=== PATIENT | female | born 1985 | race Caucasian/White ===

== ENCOUNTER 2016-12-03 18:56 | Emergency (ER) | payer MEDICAID ==
[~2016-12-03] VITALS: Ht 160 cm; Wt 56.7 kg
[2016-12-03 19:24] VITALS: BP 108/71
--- NOTE | 2016-12-03 19:46 | NUR ---
TO ER BED 5
--- NOTE | 2016-12-03 19:56 | NUR ---
pt c/o abd pain, back pain and legs hurting her. pt states she has also has vag bleeding for 2 weeks. DENIES N/V/D; SKIN IS PINK/WARM/DRY; AAOX4 WITH EVEN AND STEADY GAIT; LUNGS CLEAR BL; HR EVEN AND REGULAR; PT DENIES ANY FEVER, CP, SOB, OR COUGH AT THIS TIME; PATIENT STATES PAIN OF 8/10 AT THIS TIME; VSS; PATIENT POSITIONED FOR COMFORT; HOB ELEVATED; BEDRAILS UP X2; BED DOWN. ER MD MADE AWARE OF PT STATUS.
[2016-12-03] MEDS ORDERED: KETOROLAC 60 MG/2 ML VIAL IM ONE (20:00)
[2016-12-03 20:17] VITALS: BP 105/70
== END 2016-12-03 20:17 | disposition home or self-care (01) ==
LOC: MED 18:56
DX: F17.200 Nicotine dependence, unspecified, uncomplicated (principal)
CPT/HCPCS: 81002; 81025; 96372; 99283; J1885

== ENCOUNTER 2018-08-29 10:01 | Emergency (ER) | payer MEDICAID ==
[~2018-08-29] VITALS: Ht 162.6 cm; Wt 52.2 kg
[2018-08-29 10:07] VITALS: BP 127/75
== END 2018-08-29 10:29 | disposition home or self-care (01) ==
LOC: MED 10:01
DX: N39.0 Urinary tract infection, site not specified (principal)
CPT/HCPCS: 81002; 81025; 99283

== ENCOUNTER 2019-01-15 21:51 | Emergency (ER) | payer MEDICAID ==
[~2019-01-15] VITALS: Ht 157.5 cm; Wt 53.5 kg
[2019-01-15 22:11] VITALS: BP 114/69
--- NOTE | 2019-01-15 22:15 | NUR ---
PT AMBULATED TO [facility]. PROVIDED URINE.
--- NOTE | 2019-01-15 22:38 | NUR ---
PT AMBULATED TO ER BED 5
--- NOTE | 2019-01-15 22:40 | NUR ---
PT CAME INTO ER WITH C/O OF ABDOMINAL PAIN X1 DAY. PT STATED THAT SHE HAS HAD SOME NAUSEA AND DIRRHEA BUT DENIES VOMITING. PT IS ALERT AND ORIENTED. TO PERSON, PLACE AND TIME. PT HAS PAIN THROUGHOUT ABDOMEN REGION, BOWEL SOUNDS ACTIVE IN ALL 4 Q. PT HAS PAIN TO PALPATION. PAIN LEVEL IS 8/10 AT THIS TIME. ER MD MADE AWARE OF STATUS, SAFETY MEASURES IN PLACE X 1. FAMILY AT BEDSIDE.
[2019-01-15] MEDS ORDERED: ONDANSETRON 4 MG/2 ML VIAL IVP ONE (23:20)
[2019-01-15] MEDS ORDERED: MORPHINE SULFATE 4 MG/ML SYR IVP ONE (23:20)
[2019-01-15 23:37] LABS: BASOPHILS # (AUTO) 0.1 K/uL (0.00-0.22); BASOPHILS % (AUTO) 0.4 % (0.0-2.0); EOSINOPHILS # (AUTO) 0.2 K/uL (0-0.4); EOSINOPHILS % (AUTO) 0.8 % (0.0-4.0); HEMOGLOBIN 13.1 g/dL (12.0-16.0); LYMPHOCYTES # (AUTO) 2.3 K/uL (2.5-16.5); LYMPHOCYTES % (AUTO) 12.9 % (20.5-51.1); MEAN CORPUSCULAR HEMOGLOBIN 30 pg (27-31); MEAN CORPUSCULAR HGB CONC 33 g/dL (33-37); MEAN CORPUSCULAR VOLUME 92.6 fL (80-94); MONOCYTES # (AUTO) 1.3 K/uL (0.8-1.0); MONOCYTES % (AUTO) 7.1 % (1.7-9.3); NEUTROPHILS # (AUTO) 14.3 K/uL (1.8-7.7); NEUTROPHILS % (AUTO) 78.8 % (42.2-75.2); PLATELET COUNT (AUTO) 345 K/uL (140-450); RED BLOOD CELL COUNT(AUTO) 4.33 MIL/uL (4.20-5.40); RED CELL DISTRIBUTION WIDTH 13.6 % (11.6-13.7); WHITE BLOOD COUNT (AUTO) 18.2 K/uL (4.8-10.8)
[2019-01-15 23:40] LABS: APPEARANCE,URINE CLEAR (CLEAR); BILIRUBIN,URINE NEGATIVE (NEGATIVE); BLOOD, URINE 1+ (NEGATIVE); COLOR,URINE YELLOW (YELLOW); LEUKOCYTE ESTERASE ,URINE NEGATIVE (NEGATIVE); NITRITE, URINE NEGATIVE (NEGATIVE); UGLUCOSE NEGATIVE (NEGATIVE)
[2019-01-16 00:02] LABS: ANION GAP 13.8 (8-16); CARBON DIOXIDE 26.2 mmol/L (21-32); CREATININE 0.6 mg/dL (0.6-1.3)
[2019-01-16 00:07] LABS: ALBUMIN 4.1 g/dL (3.4-5.0); TOTAL BILIRUBIN 0.6 mg/dL (0.0-1.0)
[2019-01-16 00:15] LABS: WBC,URINE 0-5 /HPF (0-5)
--- NOTE | 2019-01-16 01:00 | NUR ---
PT LYING IN BED, VSS. PT STATES HER PAIN HAS DECREASED, PAIN LEVEL IS 3/10 AT THIS TIME. ER MD MADE AWARE. WHATING FOR RESULTS. CONTINUE TO MONITOR.
--- NOTE | 2019-01-16 02:36 | NUR ---
DR. BAIG EVALUATING PT
[2019-01-16 03:05] VITALS: BP 112/72
--- NOTE | 2019-01-16 03:05 | NUR ---
Patient discharged with v/s stable. Written and verbal after care instructions given and explained. Patient alert, oriented and verbalized understanding of instructions. Ambulatory with steady gait. All questions addressed prior to discharge. ID band removed. Patient advised to follow up with PMD. Rx of MIRALAX AND NORCO WERE given. Patient educated on indication of medication including possible reaction and side effects. Opportunity to ask questions provided and answered. PT STATES HER PAIN HAS DECREASED AND PAIN LEVEL IS 2/10 AT THIS TIME.
== END 2019-01-16 03:05 | disposition home or self-care (01) ==
LOC: MED 21:51
DX: R51 Headache (principal); R11.0 Nausea; M54.5 Low back pain; R10.84 Generalized abdominal pain; R19.7 Diarrhea, unspecified; H57.10 Ocular pain, unspecified eye
CPT/HCPCS: 36415; 74176; 80053; 81001; 83690; 84703; 85025; 96374; 96375; 99284; J2270; J2405; 81025

== ENCOUNTER 2019-04-07 22:49 | Emergency (ER) | payer MEDICAID ==
[~2019-04-07] VITALS: Ht 165.1 cm; Wt 63.5 kg
--- NOTE | 2019-04-07 22:55 | NUR ---
PT TAKEN TO BED 8
[2019-04-07 22:59] VITALS: BP 115/84
--- NOTE | 2019-04-07 23:13 | NUR ---
Dr. Back examining patient.
[2019-04-07] MEDS ORDERED: NACL 0.9% 1,000 ML IV ONE (23:15)
--- NOTE | 2019-04-07 23:15 | NUR ---
33 Y/O FEMALE PRESENTS TO ED, C/O OF ABDOMINAL ACHING PAIN 04/12. PT STATES THE PAIN STARTED LAST NIGHT. BOWEL SOUNDS ACTIVE ON ALL QUDRANTS, NO DISTENTION, PAIN ON PALPATION ON LOWER ABDOMEN. PT HAS NO MEDICAL HX. PT VSS. DR COLEY AWARE. WILL CONTINUE TO MONITOR.
[2019-04-07 23:56] LABS: BASOPHILS # (AUTO) 0.1 K/uL (0.00-0.22); BASOPHILS % (AUTO) 0.7 % (0.0-2.0); EOSINOPHILS # (AUTO) 0.1 K/uL (0-0.4); HEMATOCRIT 35.6 % (36-48); HEMOGLOBIN 12.2 g/dL (12.0-16.0); LYMPHOCYTES # (AUTO) 2.9 K/uL (2.5-16.5); LYMPHOCYTES % (AUTO) 26.8 % (20.5-51.1); MEAN CORPUSCULAR HEMOGLOBIN 31 pg (27-31); MEAN CORPUSCULAR HGB CONC 34 g/dL (33-37); MONOCYTES # (AUTO) 0.7 K/uL (0.8-1.0); MONOCYTES % (AUTO) 6.9 % (1.7-9.3); NEUTROPHILS # (AUTO) 6.9 K/uL (1.8-7.7); NEUTROPHILS % (AUTO) 64.6 % (42.2-75.2); PLATELET COUNT (AUTO) 318 K/uL (140-450); RED CELL DISTRIBUTION WIDTH 13.1 % (11.6-13.7); WHITE BLOOD COUNT (AUTO) 10.7 K/uL (4.8-10.8)
[2019-04-08 00:06] LABS: ANION GAP 10.8 (8-16); CARBON DIOXIDE 27.4 mmol/L (21-32); CREATININE 0.6 mg/dL (0.6-1.3); POTASSIUM 3.2 mmol/L (3.5-5.1)
[2019-04-08 00:12] LABS: ALBUMIN 3.8 g/dL (3.4-5.0); TOTAL BILIRUBIN 0.6 mg/dL (0.0-1.0)
--- NOTE | 2019-04-08 00:15 | NUR ---
PT AWAKE, LAYING ON BED. AT BEDSIDE. PT C/O ABDOMINAL PAIN 04/12. DR COLEY AWARE. WILL CONTINUE TO MONITOR.
[2019-04-08] MEDS ORDERED: KETOROLAC 30 MG/ML VIAL IVP ONE (00:30)
--- NOTE | 2019-04-08 00:41 | NUR ---
COVERING PRIMARY RN FOR LUNCH RELIEF. ASSUMED TEMPORARY CARE OF PT.
--- NOTE | 2019-04-08 00:43 | NUR ---
Ultrasound at bedside.
--- NOTE | 2019-04-08 01:15 | NUR ---
PT AWAKE, LAYING ON BED. AT BEDSIDE. PT C/O OF ABDOMINAL PAIN 03/12. DR COLEY AWARE. WILL CONTINUE TO MONITOR.
--- NOTE | 2019-04-08 01:16 | NUR ---
ALL CARE TRASNFERED BACK TO PRIMARY RN.
[2019-04-08 02:50] VITALS: BP 105/60
--- NOTE | 2019-04-08 02:50 | NUR ---
PT DISCHARGED WITH PAPERWORK. RX TRAMADOL AND MOTRIN, EDUCATED PT REGARDING MEDICATIONS AND SIDE EFFECTS. EDUCATED PT REGARDING DISCHARGE DIAGNOSIS. PT VERBALIZED UNDERSTANDING OF TEACHING. TOLD PT TO FOLLOW UP WITH PCP AND WHEN TO RETURN TO ED. PT VSS. ALL QUESTIONS ANSWERED.
== END 2019-04-08 02:50 | disposition home or self-care (01) ==
LOC: MED 22:49
DX: N94.89 Other specified conditions associated with female genital organs and menstrual cycle (principal)
CPT/HCPCS: 36415; 76830; 80053; 81025; 85025; 96374; 99284; J1885; J7030; Q0092

== ENCOUNTER 2020-06-29 19:00 | Emergency (ER) | payer MEDICAID ==
[~2020-06-29] VITALS: Ht 157.5 cm; Wt 55.8 kg
[2020-06-29 19:06] VITALS: BP 126/74
[2020-06-29 19:18] VITALS: BP 126/74
[2020-06-29] MEDS: KETOROLAC 60 MG/2 ML VIAL IM ONE (19:41)
== END 2020-06-29 20:06 | disposition home or self-care (01) ==
LOC: MED 19:00
DX: N94.6 Dysmenorrhea, unspecified (principal); N93.9 Abnormal uterine and vaginal bleeding, unspecified
CPT/HCPCS: 81025; 96372; 99283; J1885; 81002

== ENCOUNTER 2021-04-13 08:46 | Emergency (ER) | payer MEDICAID ==
[~2021-04-13] VITALS: Ht 157.5 cm; Wt 58.5 kg
[2021-04-13 09:01] VITALS: BP 132/66
--- NOTE | 2021-04-13 09:08 | NUR ---
PT AMBULATED TO BED 2.
--- NOTE | 2021-04-13 09:14 | NUR ---
Dr. Hope at the bedside evaluating patient.
--- NOTE | 2021-04-13 09:19 | NUR ---
Patient is a 45 y/o female c/o heavy vaginal bleeding. Per patient, she has a heavy menstrual period that normally lasts 7 days but has been bleeding since 04/01/21. Patient denies CP, SOB, headed, URI sx; does c/o burning pelvic pain 05/13 that radiates to her legs and low back. PMH: denies Rx: denies NKA
[2021-04-13] MEDS ORDERED: KETOROLAC 30 MG/ML VIAL IM ONE (09:20)
--- NOTE | 2021-04-13 09:34 | NUR ---
US at the bedside.
--- NOTE | 2021-04-13 09:40 | NUR ---
labs drawn and taken to the lab; labs handed to [employer]phalt plant laborerJorge.
[2021-04-13 10:11] LABS: BASOPHILS # (AUTO) 0.1 K/uL (0.00-0.22); BASOPHILS % (AUTO) 1.1 % (0.0-2.0); EOSINOPHILS # (AUTO) 0.1 K/uL (0-0.4); EOSINOPHILS % (AUTO) 2.1 % (0.0-4.0); HEMATOCRIT 39.6 % (36-48); HEMOGLOBIN 13.3 g/dL (12.0-16.0); LYMPHOCYTES # (AUTO) 2.5 K/uL (2.5-16.5); LYMPHOCYTES % (AUTO) 41.1 % (20.5-51.1); MEAN CORPUSCULAR HEMOGLOBIN 31 pg (27-31); MEAN CORPUSCULAR HGB CONC 34 g/dL (33-37); MONOCYTES # (AUTO) 0.4 K/uL (0.8-1.0); NEUTROPHILS # (AUTO) 2.9 K/uL (1.8-7.7); NEUTROPHILS % (AUTO) 48.7 % (42.2-75.2); PLATELET COUNT (AUTO) 337 K/uL (140-450); RED BLOOD CELL COUNT(AUTO) 4.35 MIL/uL (4.20-5.40); RED CELL DISTRIBUTION WIDTH 12.8 % (11.6-13.7)
[2021-04-13 10:36] LABS: ALBUMIN 4.2 g/dL (3.4-5.0); CREATININE 0.6 mg/dL (0.6-1.3); TOTAL BILIRUBIN 0.8 mg/dL (0.0-1.0)
--- NOTE | 2021-04-13 10:50 | NUR ---
PT TO WAIT IN LOBBY FOR RESULTS.
--- NOTE | 2021-04-13 12:05 | NUR ---
Patient discharged with v/s stable. Written and verbal after care instructions ABOUT DYSFUNCTIONAL UTERINE BLEEDING given and explained. Patient verbalized understanding. Ambulatory with steady gait. All questions addressed prior to discharge. Advised to follow up with PMD.
[2021-04-13 12:08] VITALS: BP 105/55
== END 2021-04-13 12:05 | disposition home or self-care (01) ==
LOC: MED 08:46
DX: N93.8 Other specified abnormal uterine and vaginal bleeding (principal)
CPT/HCPCS: 36415; 76856; 80053; 81002; 81025; 84702; 85025; 86886; 86900; 86901; 96372; 99284; J1885

== ENCOUNTER 2021-11-14 08:12 | Emergency (ER) | payer MEDICAID ==
[~2021-11-14] VITALS: Ht 157.5 cm; Wt 56.2 kg
[2021-11-14 08:15] VITALS: BP 127/64
--- NOTE | 2021-11-14 08:27 | NUR ---
PT AMBULATED TO ER BED 3 WITH A STEADY GAIT.
--- NOTE | 2021-11-14 08:28 | NUR ---
DR. UPTON AT PT BEDSIDE FOR FURTHER EVALUATION.
--- NOTE | 2021-11-14 08:41 | NUR ---
CONCRETE FINISHER AT PT BEDSIDE.
[2021-11-14 08:55] LABS: BASOPHILS % (AUTO) 0.4 % (0.0-2.0); HEMATOCRIT 38.4 % (36-48); LYMPHOCYTES # (AUTO) 1.4 K/uL (2.5-16.5); LYMPHOCYTES % (AUTO) 12.7 % (20.5-51.1); MEAN CORPUSCULAR HEMOGLOBIN 30 pg (27-31); MEAN CORPUSCULAR HGB CONC 34 g/dL (33-37); MEAN CORPUSCULAR VOLUME 89.8 fL (80-94); MONOCYTES # (AUTO) 0.5 K/uL (0.8-1.0); MONOCYTES % (AUTO) 4.9 % (1.7-9.3); NEUTROPHILS # (AUTO) 8.8 K/uL (1.8-7.7); PLATELET COUNT (AUTO) 376 K/uL (140-450); RED BLOOD CELL COUNT(AUTO) 4.28 MIL/uL (4.20-5.40); RED CELL DISTRIBUTION WIDTH 13.3 % (11.6-13.7); WHITE BLOOD COUNT (AUTO) 10.7 K/uL (4.8-10.8)
[2021-11-14] MEDS: KETOROLAC 30 MG/ML VIAL IM ONE (08:58)
[2021-11-14 09:06] LABS: ANION GAP 14.7 (8-16); CARBON DIOXIDE 24.7 mmol/L (21-32); CREATININE 0.6 mg/dL (0.6-1.3); POTASSIUM 3.4 mmol/L (3.5-5.1)
[2021-11-14] MEDS ORDERED: NAPR-54 PO (09:20)
[2021-11-14] MEDS ORDERED: DIAZ5TAB8 PO (09:20)
[2021-11-14] MEDS: POTASSIUM CHLORIDE 10 MEQ TABER PO ONE (09:48)
[2021-11-14 09:55] VITALS: BP 127/64
--- NOTE | 2021-11-14 09:57 | NUR ---
Patient discharged with v/s stable. Written and verbal after care instructions given FOR HYPOKALEMIA AND MUSCLE PAIN and explained. Patient alert, oriented and verbalized understanding of instructions. Ambulatory with steady gait. All questions addressed prior to discharge. ID band removed. Patient advised to follow up with PMD. Rx of VALIUM AND NAPROXEN given. Patient educated on indication of medication including possible reaction and side effects. Opportunity to ask questions provided and answered.
== END 2021-11-14 09:55 | disposition home or self-care (01) ==
LOC: MED 08:12
DX: M79.10 Myalgia, unspecified site (principal); E87.6 Hypokalemia
CPT/HCPCS: 36415; 80048; 81002; 81025; 85025; 96372; 99283; J1885